=== PATIENT | female | born 1930 ===

== ENCOUNTER 2018-04-10 16:58 | Emergency (ER) | payer OTHER ==
[~2018-04-10] VITALS: Ht 160 cm; Wt 56.7 kg
[2018-04-10] MEDS ORDERED: COZAAR25 MG PO (17:08)
[2018-04-10] MEDS ORDERED: ASA-EC81 MG PO (17:08)
[2018-04-10] MEDS ORDERED: TRAZODONE HCL50 MG PO (17:08)
[2018-04-10] MEDS ORDERED: MEMANTINE HCL5 MG PO (17:08)
[2018-04-10] MEDS ORDERED: TOPROL XL25 M1 PO (17:08)
== END 2018-04-10 19:22 | disposition home or self-care (01) ==
LOC: ER 16:58
DX: S70.02XA Contusion of left hip, initial encounter (principal); R55 Syncope and collapse; W18.09XA Striking against other object with subsequent fall, initial encounter; Y93.89 Activity, other specified; Y92.018 Other place in single-family (private) house as the place of occurrence of the external cause; Y99.8 Other external cause status